=== PATIENT | male | born 1945 | race Hispanic/Latino ===

== ENCOUNTER 2020-08-23 20:19 | Emergency (ER) | payer MEDICARE ==
[2020-08-23 20:44] LABS: BASOPHILS % (AUTO) 0.6 % (0.0-5.0); EOSINOPHILS % (AUTO) 3.4 % (0.0-8.0); LYMPHOCYTES % (AUTO) 18.7 % (21.0-51.0); MEAN CORPUSCULAR HEMOGLOBIN 30.4 pg (27.0-33.0); MEAN CORPUSCULAR HGB CONC 33.8 g/dL (32.0-36.0); MEAN CORPUSCULAR VOLUME 89.9 fL (79-99); MONOCYTES % (AUTO) 5.7 % (3.0-13.0); NEUTROPHILS % (AUTO) 71.2 % (40.0-77.0); PLATELET COUNT (AUTO) 197 K/uL (130-400); RED BLOOD CELL COUNT(AUTO) 3.78 MIL/uL (4.50-6.20); RED CELL DISTRIBUTION WIDTH 12.9 % (11.0-15.5); WHITE BLOOD COUNT (AUTO) 10.8 K/uL (4.8-10.8)
[2020-08-23 20:56] LABS: CREATININE 0.9 mg/dL (0.5-1.5); POTASSIUM 3.6 mmol/L (3.5-5.1)
[2020-08-23 21:00] LABS: ALBUMIN 3.1 g/dL (3.5-5.0); BILIRUBIN,TOTAL 0.5 mg/dL (0.2-1.0); TOTAL PROTEIN, SERUM 6.9 g/dL (6.0-8.3)
[2020-08-23] MEDS ORDERED: CEFTRIAXONE SODIUM 2 GM VIAL ONE (21:51)
[2020-08-23] MEDS ORDERED: SODIUM CHLORIDE 0.9% 100 ML IV ONE (21:52)
[2020-08-23] MEDS ORDERED: ASPIRIN 325 MG TABLET ONE (23:39)
== END 2020-08-24 00:03 | disposition home or self-care (01) ==
LOC: EDH 20:19
DX: L03.115 Cellulitis of right lower limb (principal); E11.9 Type 2 diabetes mellitus without complications; I10 Essential (primary) hypertension; E78.00 Pure hypercholesterolemia, unspecified
CPT/HCPCS: 36415; 73630; 80053; 83605; 83690; 85025; 85651; 86140; 87040 ×2; 93971; 96365; 99285; J0696; 93005

== ENCOUNTER 2020-09-27 13:54 | Observation (INO) | payer OTHER, MEDICARE ==
[~2020-09-27] VITALS: Ht 182.9 cm; Wt 74.4 kg
[2020-09-27 14:57] LABS: BASOPHILS % (AUTO) 0.1 % (0.0-5.0); HEMATOCRIT 36.2 % (42-54); LYMPHOCYTES % (AUTO) 13.2 % (21.0-51.0); MEAN CORPUSCULAR HEMOGLOBIN 29.5 pg (27.0-33.0); MEAN CORPUSCULAR HGB CONC 34.3 g/dL (32.0-36.0); MONOCYTES % (AUTO) 4.7 % (3.0-13.0); NEUTROPHILS % (AUTO) 81.6 % (40.0-77.0); PLATELET COUNT (AUTO) 143 K/uL (130-400); RED BLOOD CELL COUNT(AUTO) 4.21 MIL/uL (4.50-6.20); RED CELL DISTRIBUTION WIDTH 11.8 % (11.0-15.5); WHITE BLOOD COUNT (AUTO) 7.1 K/uL (4.8-10.8)
[2020-09-27] MEDS ORDERED: ACETAMINOPHEN 500 MG TABLET ONE (15:00)
[2020-09-27 15:21] LABS: B-TYPE NATRIURETIC PEPTIDE 103 pg/mL (0-100)
[2020-09-27 15:24] LABS: INR 1.09 (0.85-1.15); PROTHROMBIN TIME 11.8 SEC (9.6-11.6)
[2020-09-27 15:25] LABS: PARTIAL THROMBOPLASTIN TIME 32.8 SEC (26.3-35.5)
[2020-09-27 15:33] LABS: ALBUMIN 3.2 g/dL (3.5-5.0); BILIRUBIN,TOTAL 0.5 mg/dL (0.2-1.0); CREATININE 0.8 mg/dL (0.5-1.5); CRP QUANTITATIVE 32.7 mg/L (0.00-9.0); TOTAL PROTEIN, SERUM 7.4 g/dL (6.0-8.3)
[2020-09-27 15:50] LABS: POTASSIUM 2.4 mmol/L (3.5-5.1)
[2020-09-27] MEDS ORDERED: POTASSIUM CHLORIDE 10% ELIXIR 20 MEQ/15 ML UDCUP ONE ×2 (16:02→18:35)
[2020-09-27] MEDS ORDERED: MAGNESIUM 2GM PREMIX 50ML 50 ML IV ONE ×2 (16:59→20:46)
[2020-09-27] MEDS ORDERED: LACTATED RINGERS 1000ML 1,000 ML IV SCH (17:00)
[2020-09-27] MEDS ORDERED: DOXYCYCLINE 100MG+NS 250ML 250 ML IV ONE (18:35)
[2020-09-27] MEDS ORDERED: THIAMINE HCL 100 MG/ML 2ML VIAL ONE (18:35)
[2020-09-27] MEDS ORDERED: ERGOCALCIFEROL (VITAMIN D2) 50,000 UNIT CAPSULE ONE (18:35)
[2020-09-27] MEDS ORDERED: LACTATED RINGERS 1000ML 1,000 ML IV ONE (18:36)
[2020-09-27] MEDS ORDERED: CEFTRIAXONE 1G VIAL ONE (18:36)
[2020-09-27] MEDS ORDERED: FOLIC ACID 1 MG TABLET ONE (18:37)
[2020-09-27] MEDS ORDERED: KCL 20 MEQ ERTAB PO PRN (21:00)
[2020-09-27] MEDS ORDERED: POTASSIUM CHLORIDE 10% ELIXIR 20 MEQ/15 ML UDCUP PO PRN (21:00)
[2020-09-27] MEDS ORDERED: POTASSIUM CHLORIDE 20MEQ/100ML 100 ML IV PRN ×2 (21:00)
[2020-09-27] MEDS ORDERED: POTASSIUM CHLORIDE 20MEQ/100ML 100 ML IV ONE (21:06)
[2020-09-27] MEDS ORDERED: THIAMINE HCL 100 MG/ML 2ML VIAL IVP SCH (22:00)
[2020-09-27 22:12] VITALS: BP 114/59
[2020-09-27 22:18] LABS: MAGNESIUM 1.9 mg/dL (1.80-2.40)
[2020-09-27] MEDS ORDERED: ERGOCALCIFEROL (VITAMIN D2) 50,000 UNIT CAPSULE PO ONE (23:00)
[2020-09-27] MEDS ORDERED: FOLIC ACID 5 MG/ML VIAL IV SCH (23:30)
[2020-09-27] MEDS: FAMOTIDINE 20MG TAB PO SCH (23:46)
[2020-09-27] MEDS: POTASSIUM CHLORIDE 10% ELIXIR 20 MEQ/15 ML UDCUP PO SCH (23:46)
[2020-09-27] MEDS: ENOXAPARIN SODIUM 40 MG/0.4 ML SYRINGE SQ SCH (23:52)
[2020-09-28] VITALS: BP 145/80
[2020-09-28 01:17] LABS: BASOPHILS % (AUTO) 0.1 % (0.0-5.0); EOSINOPHILS % (AUTO) 1.8 % (0.0-8.0); HEMATOCRIT 35.2 % (42-54); LYMPHOCYTES % (AUTO) 23.9 % (21.0-51.0); MEAN CORPUSCULAR HGB CONC 34.9 g/dL (32.0-36.0); MEAN CORPUSCULAR VOLUME 85.9 fL (79-99); MONOCYTES % (AUTO) 3.1 % (3.0-13.0); NEUTROPHILS % (AUTO) 70.9 % (40.0-77.0); PLATELET COUNT (AUTO) 141 K/uL (130-400); RED CELL DISTRIBUTION WIDTH 11.9 % (11.0-15.5); WHITE BLOOD COUNT (AUTO) 9.3 K/uL (4.8-10.8)
[2020-09-28 01:31] LABS: ALBUMIN 2.8 g/dL (3.5-5.0); BILIRUBIN,TOTAL 0.5 mg/dL (0.2-1.0); CREATININE 0.9 mg/dL (0.5-1.5); CRP QUANTITATIVE 120.5 mg/L (0.00-9.0); POTASSIUM 3.8 mmol/L (3.5-5.1); TOTAL PROTEIN, SERUM 6.7 g/dL (6.0-8.3)
[2020-09-28 04:00] VITALS: BP 107/53
[2020-09-28 06:05] LABS: HEMOGLOBIN A1C 11.3 % (4.0-6.0)
[2020-09-28] MEDS: CEFTRIAXONE 1G VIAL IVP SCH ×2 (06:28→17:39)
[2020-09-28 07:58] LABS: MAGNESIUM 1.5 mg/dL (1.80-2.40); POTASSIUM 3.3 mmol/L (3.5-5.1)
[2020-09-28] MEDS ORDERED: DOXYCYCLINE 100MG+NS 250ML IV SCH (09:00)
[2020-09-28] MEDS ORDERED: ZINC SULFATE 220 CAPSULE PO SCH (09:00)
[2020-09-28] MEDS ORDERED: ASCORBIC ACID 500 MG TAB PO SCH (09:00)
[2020-09-28] MEDS ORDERED: CYANOCOBALAMIN (VITAMIN B-12) 1,000 MCG TABLET PO SCH (09:00)
[2020-09-28 09:20] VITALS: BP 106/50
[2020-09-28] MEDS: FAMOTIDINE 20MG TAB PO SCH (10:31)
[2020-09-28] MEDS: ENOXAPARIN SODIUM 40 MG/0.4 ML SYRINGE SQ SCH (10:32)
[2020-09-28] MEDS: POTASSIUM CHLORIDE 10% ELIXIR 20 MEQ/15 ML UDCUP PO SCH (10:33)
[2020-09-28] MEDS: MAGNESIUM 2GM PREMIX 50ML 50 ML IV SCH ×2 (10:34→16:48)
[2020-09-28] MEDS ORDERED: POTASSIUM CHLORIDE 10% ELIXIR 20 MEQ/15 ML UDCUP PO SCH (11:30)
[2020-09-28 12:00] VITALS: BP 137/70
[2020-09-28 13:23] LABS: MAGNESIUM 1.7 mg/dL (1.80-2.40); POTASSIUM 4.1 mmol/L (3.5-5.1)
[2020-09-28] MEDS ORDERED: KCL 20 MEQ ERTAB PO SCH (14:00)
[2020-09-28] MEDS ORDERED: ASPI-1197 PO (16:15)
[2020-09-28] MEDS ORDERED: PANT40TA55 PO (16:15)
[2020-09-28] MEDS ORDERED: INSULIN HUMULIN R 100 UNIT/ML 3ML SQ SCH (16:30)
[2020-09-28 16:31] VITALS: BP 127/64
[2020-09-28] MEDS ORDERED: CEPH500B PO (16:31)
[2020-09-28 19:15] VITALS: BP 128/73
== END 2020-09-28 19:14 | disposition home or self-care (01) ==
LOC: EDH 13:54 → EDHIP 16:56 → 2DH 21:20
PROVIDERS: ADMIT Internal Medicine; ATTEND Internal Medicine
DX: U07.1 COVID-19 (principal); J12.82 Pneumonia due to coronavirus disease 2019; E83.42 Hypomagnesemia; E87.6 Hypokalemia; F03.90 Unspecified dementia, unspecified severity, without behavioral disturbance, psychotic disturbance, mood disturbance, and anxiety; R06.02 Shortness of breath; I10 Essential (primary) hypertension; R53.1 Weakness; E11.40 Type 2 diabetes mellitus with diabetic neuropathy, unspecified; E78.5 Hyperlipidemia, unspecified; E78.00 Pure hypercholesterolemia, unspecified; R26.81 Unsteadiness on feet; Z91.81 History of falling; Z79.899 Other long term (current) drug therapy
CPT/HCPCS: 36415 ×2; 70450; 71045; 80053 ×2; 82550; 82607; 82728; 82746; 82948; 83036; 83605; 83615; 83735 ×4; 83880; 84132 ×2; 84145 ×2; 84443; 84484 ×3; 85025 ×2; 85378 ×2; 85610; 85730; 86140 ×2; 86592; 86850; 86900; 86901; 87040 ×2; 87426; 93005; 93970; 96361; 96365; 96366; 96372 ×2; 96375 ×2; 96376; 97039; 97161; 99285; G0378 ×25; G8978; G8979; G8980; G8981; G8982; G8983; J0696 ×3; J1650 ×2; J3411 ×2; J3475 ×4; J3480 ×2; J3490 ×3; J7120 ×2; 80048